=== PATIENT | female | born 1935 | race Caucasian/White ===

== ENCOUNTER → 2017-04-03 | Outpatient (CLI) | payer MEDICARE, BC ==
--- NOTE | ~2017-04-03 | PUL ---
PATIENT'S NAME: [facility] AGE: 81 Y [address] ROOM: [place] [address] LOCATION: [facility] ADMIT DATE: 04/03/2017 Pulmonary DISCHARGE DATE: FAMILY PHYSICIAN: Rama Michelle PA-C ATTENDING PHYSICIAN: BAN MERCEDES NAME OF PROCEDURE: Sleep study. PROCEDURE DATE: 04/03/2017 TECH: YISSEL Lopez TEST #: [facility] [place] [id number] TECHNICAL PARAMETERS: The patient was studied using International 10/20 measuring system. While the patient was studied, there was continuous monitoring of EEG (8 leads), EOG (2 leads), EKG (3 leads), submental EMG (3 leads), tibial (4 leads), respiratory inductive plethysmography (RIP) for thoracic and abdominal effort, oral and nasal airflow with a thermocouple and pressure transducer, and oximetry. The remote broadcast technician also performed visual and auditory observations noting things like body position, patient's status, breath sounds, artifact, snoring level and patient comments. Continuous sound was monitored using a 2-way speaker system and video monitoring was performed using an infrared camera. Review of the entire study was performed epoch by epoch utilizing a single epoch and multiple epoch capability sleep system. MEDICAL HISTORY: Patient is a 81-year-old woman with daytime sleepiness and snoring. SLEEP STAGE SUMMARY: The patient was studied for 478 minutes of which she slept 373 minutes. She fell asleep in 24 minutes and slept for 78% of the night. Sleep architecture revealed a decline in slow wave and REM sleep. RESPIRATORY SUMMARY: This study was done to titrate CPAP. The patient is chronically on oxygen and the study was started with 3 liters of oxygen and 6cm of CPAP. CPAP was titrated to 10 cm with good control of the respiratory events. EKG SUMMARY: No significant dysrhythmias were noted. LIMB MOVEMENT SUMMARY: Occasional periodic limb movements were noted. These are probably not clinically relevant. SUMMARY: Obstructive sleep apnea and non apneic hypoxemia responsive to CPAP at 10 cm and oxygen 3 liters. PATIENT'S NAME: [facility] AGE: 81 Y [address] ROOM: [place] [address] LOCATION: [facility] ADMIT DATE: 04/03/2017 Pulmonary DISCHARGE DATE: FAMILY PHYSICIAN: Rama Michelle PA-C ATTENDING PHYSICIAN: BAN MERCEDES PLAN: Suggest the above-mentioned parameters. MD CHARLES LEES/ /[id number] dtt: 04/17/17 0827 , [place]. dtd: 04/09/17 1612
== END | disposition disaster alternative care site (69) ==
LOC: GSLP 20:16
DX: G47.10 Hypersomnia, unspecified (principal); G47.33 Obstructive sleep apnea (adult) (pediatric); R09.02 Hypoxemia